=== PATIENT | male | born 2000 | race Caucasian/White ===

== ENCOUNTER 2022-10-25 09:17 | Emergency (ER) | payer MEDICAID ==
[2022-10-25 10:51] LABS: HEMATOCRIT 43.9 % (38.4-49.7); MEAN CORPUSCULAR HEMOGLOBIN 30.1 pg (31.6-35.5); MEAN CORPUSCULAR HGB CONC 34.2 g/dL (31.6-35.5); PLATELET COUNT,PLT 242 K/uL (130-375); RED BLOOD CELL COUNT 4.99 M/uL (4.14-5.76); WHITE BLOOD CELL COUNT,WBC 6.3 K/uL (3.2-11.0)
[2022-10-25 11:19] LABS: CALCIUM 9.6 mg/dL (8.5-10.1); CREATININE 0.9 mg/dL (0.8-1.3); EST CRCL DRUG DOSING (CG) 138.91 mL/min; POTASSIUM,K 4.7 mmol/L (3.6-5.2)
[2022-10-25 11:22] LABS: ANION GAP 12.7 mmol/L (5.0-14.0)
[2022-10-25 11:24] LABS: LYMPHOCYTES ABSOLUTE MAN 1.89 K/uL (0.8-3.3); LYMPHOCYTES PERCENT MAN 30 % (24-44); MONOCYTES ABSOLUTE MAN 0.57 K/uL (0.20-0.90); MONOCYTES PERCENT MAN 9 % (2-6); NEUTROPHILS ABSOLUTE MAN 3.84 K/uL (1.0-7.6); SEG NEUTROPHILS PERCENT MAN 61 % (36-66)
[2022-10-25 11:25] LABS: ATYPICAL LYMPHOCYTES MODERATE
[2022-10-25 13:19] LABS: AMPHETAMINES SCREEN, URINE NEGATIVE (NEGATIVE); BARBITURATE SCREEN,URINE NEGATIVE (NEGATIVE); BENZODIAZEPINES SCREEN,URINE NEGATIVE (NEGATIVE); METHADONE SCREEN, URINE NEGATIVE (NEGATIVE); METHAMPHETAMINES SCREEN, URINE NEGATIVE (NEGATIVE); OXYCODONE SCREEN,URINE NEGATIVE (NEGATIVE); PROPOXYPHENE SCREEN,URINE NEGATIVE (NEGATIVE); THC SCREEN,URINE 50 NG/ML NEGATIVE (NEGATIVE)
== END 2022-10-25 14:18 | disposition home or self-care (01) ==
LOC: JP.ED 09:17
DX: F23 Brief psychotic disorder (principal)
CPT/HCPCS: 36415; 80048; 80305-QW; 80307; 84443; 85025; 99283; 99284

== ENCOUNTER 2022-10-26 22:52 | Emergency (ER) | payer MEDICAID ==
[2022-10-26] MEDS ORDERED: Ketamine 500 MG/5 ML MDV IM ONE (23:43)
[2022-10-26] MEDS ORDERED: OLANZapine 10 MG Vial IM ONE (23:43)
[2022-10-27 00:11] LABS: AMPHETAMINES SCREEN, URINE NEGATIVE (NEGATIVE); BARBITURATE SCREEN,URINE NEGATIVE (NEGATIVE); BENZODIAZEPINES SCREEN,URINE NEGATIVE (NEGATIVE); METHADONE SCREEN, URINE NEGATIVE (NEGATIVE); METHAMPHETAMINES SCREEN, URINE NEGATIVE (NEGATIVE); OXYCODONE SCREEN,URINE NEGATIVE (NEGATIVE); PROPOXYPHENE SCREEN,URINE NEGATIVE (NEGATIVE); THC SCREEN,URINE 50 NG/ML NEGATIVE (NEGATIVE)
[2022-10-27 00:45] LABS: HEMATOCRIT 40.4 % (38.4-49.7); HEMOGLOBIN 13.9 g/dL (12.9-16.9); MEAN CORPUSCULAR HEMOGLOBIN 30.2 pg (31.6-35.5); MEAN CORPUSCULAR HGB CONC 34.4 g/dL (31.6-35.5); MEAN CORPUSCULAR VOLUME 87.8 fL (81.4-99.0); PLATELET COUNT,PLT 213 K/uL (130-375)
[2022-10-27 00:59] LABS: A/G RATIO 1.1 (1.2-2.2); ALANINE AMINOTRANSFERASE,ALT 26 U/L (12-78); ALBUMIN 3.8 g/dL (3.4-5.0); ALKALINE PHOSPHATASE 85 U/L (46-116); ASPARTATE AMNIOTRANSFERASE,AST 21 U/L (15-37); BILIRUBIN TOTAL 0.5 mg/dL (0.2-1.0); BLOOD UREA NITROGEN,BUN 14 mg/dL (7-18); CARBON DIOXIDE,CO2 29 mmol/L (21-32); CHLORIDE,CL 101 mmol/L (100-108); CREATININE 0.9 mg/dL (0.8-1.3); EST CRCL DRUG DOSING (CG) 138.91 mL/min; ESTIMATED GFR 122 mL/min (>60); GLUCOSE RANDOM 110 mg/dL (74-106); POTASSIUM,K 3.3 mmol/L (3.6-5.2); PROTEIN TOTAL,TP 7.3 g/dL (6.4-8.2); SODIUM,NA 138 mmol/L (140-148); TSH ULTRASENSITIVE 1.151 uIU/mL (0.358-3.740)
[2022-10-27 01:00] LABS: BAND ABSOLUTE MAN 0.06 K/uL; BAND PERCENT MAN 1 % (5-11); LYMPHOCYTES ABSOLUTE MAN 3.12 K/uL (0.8-3.3); LYMPHOCYTES PERCENT MAN 52 % (24-44); MONOCYTES ABSOLUTE MAN 0.42 K/uL (0.20-0.90); MONOCYTES PERCENT MAN 7 % (2-6); SEG NEUTROPHILS PERCENT MAN 40 % (36-66)
[2022-10-27 01:01] LABS: ANION GAP 11.3 mmol/L (5.0-14.0)
[2022-10-27] MEDS ORDERED: LORazepam 1 MG Tab PO ONE (04:47)
[2022-10-27] MEDS ORDERED: Ketamine 500 MG/5 ML MDV IM ONE ×2 (04:55→15:31)
[2022-10-27] MEDS: QUEtiapine 25 MG Tab PO SCH ×2 (21:10→21:53)
[2022-10-28] MEDS: QUEtiapine 25 MG Tab PO SCH (06:10)
== END 2022-10-28 09:30 ==
LOC: JP.ED 22:52
DX: F23 Brief psychotic disorder (principal); Z20.822 Contact with and (suspected) exposure to COVID-19
CPT/HCPCS: 36415; 73120; 80053; 80305; 84443; 85025; 96372; 99285; A9270

== ENCOUNTER 2025-02-13 12:01 | Emergency (ER) | payer MEDICAID ==
[2025-02-13 12:52] LABS: BASOPHILS ABSOLUTE AUTO 0.03 K/uL (0.00-0.10); BASOPHILS PERCENT AUTO 0.6 % (0.1-1.3); EOSINOPHILS ABSOLUTE AUTO 0.07 K/uL (0.00-0.40); EOSINOPHILS PERCENT AUTO 1.3 % (0.0-5.4); IMMATURE GRAN ABSOLUTE AUTO 0.01 K/uL (0.00-0.23); IMMATURE GRAN PERCENT AUTO 0.2 % (0.0-0.7); LYMPHOCYTES ABSOLUTE AUTO 1.18 K/uL (0.8-3.3); LYMPHOCYTES PERCENT AUTO 22.4 % (11.4-47.7); MONOCYTES ABSOLUTE AUTO 0.35 K/uL (0.20-0.90); MONOCYTES PERCENT AUTO 6.7 % (3.3-12.6); NEUTROPHILS ABSOLUTE AUTO 3.62 K/uL (1.0-7.6); NEUTROPHILS PERCENT AUTO 68.8 % (40.0-78.1); PLATELET COUNT,PLT 220 K/uL (130-375); RED BLOOD CELL COUNT 5.25 M/uL (4.14-5.76); WHITE BLOOD CELL COUNT,WBC 5.3 K/uL (3.2-11.0)
[2025-02-13 13:12] LABS: ALANINE AMINOTRANSFERASE,ALT 24 U/L (12-78); ASPARTATE AMNIOTRANSFERASE,AST 24 U/L (15-37); BILIRUBIN TOTAL 1.0 mg/dL (0.2-1.0); BLOOD UREA NITROGEN,BUN 13 mg/dL (7-18); CARBON DIOXIDE,CO2 29 mmol/L (21-32); CHLORIDE,CL 107 mmol/L (100-108); CREATININE 0.8 mg/dL (0.8-1.3); EST CRCL DRUG DOSING (CG) 149.03 mL/min; ESTIMATED GFR 125 mL/min (>60); GLUCOSE RANDOM 104 mg/dL (74-106); POTASSIUM,K 4.1 mmol/L (3.6-5.2); PROTEIN TOTAL,TP 8.1 g/dL (6.4-8.2); SODIUM,NA 144 mmol/L (140-148)
[2025-02-13 13:13] LABS: A/G RATIO 1.3 (1.2-2.2)
[2025-02-13 13:26] LABS: APPEARANCE,URINE CLEAR (CLEAR); GLUCOSE,URINE NEGATIVE (NEGATIVE); OCCULT BLOOD,URINE NEGATIVE (NEGATIVE)
[2025-02-13 13:47] LABS: SQUAMOUS EPITHELIAL CELLS,UR FEW /HPF
[2025-02-13 20:24] LABS: AMPHETAMINES SCREEN, URINE NEGATIVE (NEGATIVE); METHADONE SCREEN, URINE NEGATIVE (NEGATIVE); METHAMPHETAMINES SCREEN, URINE NEGATIVE (NEGATIVE); OXYCODONE SCREEN,URINE NEGATIVE (NEGATIVE); PROPOXYPHENE SCREEN,URINE NEGATIVE (NEGATIVE); THC SCREEN,URINE 50 NG/ML NEGATIVE (NEGATIVE)
== END 2025-02-14 08:25 ==
LOC: JP.ED 12:01
DX: T47.1X2A Poisoning by other antacids and anti-gastric-secretion drugs, intentional self-harm, initial encounter (principal); F31.9 Bipolar disorder, unspecified; Z79.899 Other long term (current) drug therapy
CPT/HCPCS: 36415; 80053; 80143; 80179; 80305; 80307; 81001; 83605; 85025; 93005; 99285; A9270